=== PATIENT | male | born 1955 | race Hispanic/Latino ===

== ENCOUNTER 2022-01-20 11:09 | Emergency (ER) | payer OTHER ==
[~2022-01-20] VITALS: Ht 172.7 cm; Wt 81.2 kg
[~2022-01-20 11:09] MED LIST: GLIPIZIDE5 MG PO; LOSARTAN POTASS25 MG PO; METFORMIN HCL500 MG PO; PIOGLITAZONE30 MG PO; SIMVASTATIN40 MG PO
[2022-01-20] MEDS ORDERED: TETANUS/DIPHTHERIA TOX ADULT 0.5 ML SYR IM ONE (12:15)
[2022-01-20] MEDS ORDERED: TETANUS/DIPHTHERIA TOX ADULT 0.5 ML SYR ONE (12:28)
[2022-01-20] MEDS ORDERED: CIPROFLOXACIN750 MG (12:59)
[2022-01-20] MEDS ORDERED: CLOTRIMAZOLE-BE15 GM (12:59)
[2022-01-20] MEDS ORDERED: GLIPIZIDE-METF1 EAC2 (12:59)
[2022-01-20] MEDS ORDERED: KETOROLAC TROME10 MG PO (14:53)
== END 2022-01-20 15:01 | disposition home or self-care (01) ==
LOC: FSED 11:54
DX: S22.42XA Multiple fractures of ribs, left side, initial encounter for closed fracture (principal); S81.012A Laceration without foreign body, left knee, initial encounter; M25.522 Pain in left elbow; W01.0XXA Fall on same level from slipping, tripping and stumbling without subsequent striking against object, initial encounter; Y93.01 Activity, walking, marching and hiking; Y92.89 Other specified places as the place of occurrence of the external cause; I10 Essential (primary) hypertension; E11.9 Type 2 diabetes mellitus without complications; E78.5 Hyperlipidemia, unspecified
CPT/HCPCS: 71250; 74176; 90471; 90714; 96372; 99283